=== PATIENT | male | born 1960 | race Two or more races ===

== ENCOUNTER 2021-05-18 14:00 | Inpatient (IN) | payer OTHER ==
[~2021-05-18] VITALS: Ht 180.3 cm; Wt 106.6 kg
[~2021-05-18 14:00] MED LIST: CARDIZEM CD240 MG PO; LISINOPRIL-HCTZ1 T13 PO; METFORMIN HCL500 MG PO; REGLAN5 MG/ML IJ; XELODA150 MG PO; XELODA500 MG PO; ZANTAC150 MG PO
[2021-05-18] MEDS ORDERED: HORIZANT600 MG PO (14:43)
[2021-05-18] MEDS ORDERED: COZAAR50 MG (14:44)
[2021-05-22] MEDS ORDERED: PANTOPRAZOLE SO40 MG PO (08:24)
[2021-05-22] MEDS ORDERED: FLAGYL500MG PO (08:24)
== END 2021-05-22 10:17 | disposition home or self-care (01) | DRG 389 ==
LOC: ER 14:00 → SURG 19:24
PROVIDERS: ADMIT Surgery; ATTEND Surgery
PROC: BW21ZZZ Computerized Tomography (CT Scan) of Abdomen and Pelvis (ICD-10-PCS; principal; 2021-05-18)
DX: K56.699 Other intestinal obstruction unspecified as to partial versus complete obstruction (principal); I47.1 Supraventricular tachycardia; I10 Essential (primary) hypertension; Z20.822 Contact with and (suspected) exposure to COVID-19; Z85.038 Personal history of other malignant neoplasm of large intestine; E13.9 Other specified diabetes mellitus without complications

== ENCOUNTER 2022-09-28 12:37 | Emergency (ER) | payer OTHER ==
[~2022-09-28] VITALS: Ht 180.3 cm; Wt 105.2 kg
[~2022-09-28 12:37] MED LIST changes: +COZAAR50 MG; +FLAGYL500MG PO; +HORIZANT600 MG PO; +PANTOPRAZOLE SO40 MG PO
== END 2022-09-28 14:52 | disposition home or self-care (01) ==
LOC: ER 12:37
DX: M54.6 Pain in thoracic spine (principal); E11.9 Type 2 diabetes mellitus without complications; Z79.84 Long term (current) use of oral hypoglycemic drugs